=== PATIENT | male | born 1950 | race Caucasian/White ===

== ENCOUNTER → 2016-08-05 | Outpatient (CLI) | payer MEDICARE, BC ==
--- NOTE | 2016-08-05 16:59 | CT ---
EXAMINATION: CT paranasal sinuses HISTORY: Chronic sinusitis COMPARISON: None TECHNIQUE: Axial CT images obtained through the paranasal sinuses without contrast. Coronal and sagi ttal reconstructions obtained. FINDINGS: There is mucosal thickening within the maxillary sinuses bilaterally. There is obstruction of the right ostiomeatal complex and partial obstruction of the left ostiomeatal complex secondary to the mucosal thickening. Mild scattered mucosal thickening is noted within the ethmoid air cells, sphenoid sinuses, and frontal sinuses. The frontoethmoidal recesses are patent. There is partial obs truction of the sphenoethmoidal recesses secondary to mucosal thickening. No bony destruction or air -fluid levels. The mastoid air cells and middle ears are clear. The orbits and globes are symmetric. Bone mineralization is normal. The temporomandibular joints are symmetric. No fracture or acute oss eous abnormality. IMPRESSION: 1. Mild paranasal sinus disease with details above.
== END ==
LOC: MW.DI 12:54
PROVIDERS: ATTEND Otolaryngology Otolaryngology/Facial Plastic Surgery
DX: J32.9 Chronic sinusitis, unspecified (principal)
CPT/HCPCS: 70486; 70486-26

== ENCOUNTER → 2016-08-13 | Outpatient (CLI) | payer MEDICARE, BC | LOC: MW.CHFP 15:32 | PROVIDERS: ATTEND Physician Assistant | DX: J01.00 Acute maxillary sinusitis, unspecified (principal); J30.9 Allergic rhinitis, unspecified | CPT/HCPCS: 87070; 87077; 87186; 87205; G0463 ==

== ENCOUNTER 2021-11-11 11:57 | Emergency (ER) | payer MEDICARE, BC ==
[2021-11-11] MEDS ORDERED: Heparin Sodium 5,000 Units/ML Vial IVPUSH STA (12:28)
[2021-11-11] MEDS ORDERED: Tenecteplase 50 MG Kit IV ONE (12:30)
[2021-11-11] MEDS ORDERED: Heparin Sodium/0.45% NaCl 500 ML IV SCH (12:30)
[2021-11-11] MEDS ORDERED: Clopidogrel 75 MG Tab PO ONE (12:30)
[2021-11-11 13:07] LABS: BLOOD UREA NITROGEN,BUN 15 mg/dL (7.0-18.0); CARBON DIOXIDE,CO2 32.1 mmol/L (21.0-32.0); CHLORIDE,CL 103 mmol/L (98-107); GLUCOSE RANDOM 158 mg/dL (74-106); POTASSIUM,K 3.7 mmol/L (3.5-5.1); SODIUM,NA 142 mmol/L (136-148)
[2021-11-11 13:12] LABS: ESTIMATED GFR 71 mL/min (>60)
== END 2021-11-11 13:21 ==
LOC: MW.ED 11:57
DX: I21.3 ST elevation (STEMI) myocardial infarction of unspecified site (principal); E11.9 Type 2 diabetes mellitus without complications; I10 Essential (primary) hypertension; J44.9 Chronic obstructive pulmonary disease, unspecified; Z20.822 Contact with and (suspected) exposure to COVID-19
CPT/HCPCS: 36415; 71045; 80048; 83735; 84484; 85025; 85610; 85730; 92977; 93005; 96365; 96376; 99291; A9270; J1644; J3101; U0002; 93010

== ENCOUNTER 2024-07-03 07:24 | Day surgery (SDC) | payer MEDICARE ==
[~2024-07-03 07:24] MED LIST: Sodium Chloride 0.9% 10 ML Syringe FLUSH PRN; Sodium Chloride 0.9% 2.5 ML Syringe FLUSH PRN; Sodium Chloride 0.9% 20 ML SDV IV PRN
[2024-07-03] MEDS: Lactated Ringers 1,000 ML IV SCH (07:50)
[2024-07-03] MEDS ORDERED: Lidocaine 2% 5 ML SDV ONE (08:31)
[2024-07-03] MEDS ORDERED: Propofol 200 MG/20 ML SDV ONE ×2 (08:31→09:42)
== END 2024-07-03 10:46 | disposition home or self-care (01) ==
LOC: MW.SDS 07:24
PROVIDERS: ATTEND Surgery
DX: Z12.11 Encounter for screening for malignant neoplasm of colon (principal); D12.2 Benign neoplasm of ascending colon; D12.3 Benign neoplasm of transverse colon; D12.5 Benign neoplasm of sigmoid colon; K62.1 Rectal polyp; K57.30 Diverticulosis of large intestine without perforation or abscess without bleeding; K42.9 Umbilical hernia without obstruction or gangrene; J45.909 Unspecified asthma, uncomplicated; I25.10 Atherosclerotic heart disease of native coronary artery without angina pectoris; K21.9 Gastro-esophageal reflux disease without esophagitis; I10 Essential (primary) hypertension; E78.00 Pure hypercholesterolemia, unspecified; G47.33 Obstructive sleep apnea (adult) (pediatric); Z79.82 Long term (current) use of aspirin; Z79.84 Long term (current) use of oral hypoglycemic drugs; Z79.899 Other long term (current) drug therapy; Z80.0 Family history of malignant neoplasm of digestive organs
CPT/HCPCS: 45380; 45385; 88305; J2704; J7120; 00811; 99100; J3490

== ENCOUNTER 2024-12-13 06:33 | Day surgery (SDC) | payer MEDICARE ==
[~2024-12-13 06:33] MED LIST changes: -Sodium Chloride 0.9% 20 ML SDV IV PRN; +ceFAZolin 2 GM in Water For Injection, Sterile 20 ML IVPUSH ONE
[2024-12-13] MEDS ORDERED: fentaNYL 250 MCG/5 ML SDV ONE (07:28)
[2024-12-13] MEDS ORDERED: Propofol 200 MG/20 ML SDV ONE (07:28)
[2024-12-13] MEDS: Lactated Ringers 1,000 ML IV SCH (07:30)
[2024-12-13] MEDS ORDERED: Ropivacaine 0.5% 5 MG/ML 30 ML SDV ONE ×2 (07:32→07:53)
[2024-12-13] MEDS ORDERED: Morphine 10 MG/ML SDV ONE (07:33)
[2024-12-13] MEDS ORDERED: Lidocaine 2% 11 ML Jelly Filled Syringe ONE (07:38)
[2024-12-13] MEDS ORDERED: Albuterol 0.083% 2.5 MG/3 ML Neb Soln NEB PRN (07:49)
[2024-12-13] MEDS ORDERED: Naloxone 0.4 MG/ML SDV IVPUSH PRN (07:49)
[2024-12-13] MEDS ORDERED: Ondansetron 4 MG/2 ML SDV IVPUSH PRN (07:49)
[2024-12-13] MEDS ORDERED: fentaNYL 50 MCG/ML SDV IVPUSH PRN (07:49)
[2024-12-13] MEDS ORDERED: Ketamine HCL/NACL, ISO-OSM 50 MG/5 ML Syringe ONE (07:59)
[2024-12-13] MEDS ORDERED: Ondansetron 4 MG/2 ML SDV ONE (08:26)
[2024-12-13] MEDS ORDERED: dexmedeTOMIDine HCl 200 MCG/2 ML SDV ONE (09:06)
== END 2024-12-13 10:55 | disposition home or self-care (01) ==
LOC: MW.SDS 06:33
PROVIDERS: ATTEND Surgery
DX: K42.9 Umbilical hernia without obstruction or gangrene (principal); I10 Essential (primary) hypertension; I25.10 Atherosclerotic heart disease of native coronary artery without angina pectoris; E78.00 Pure hypercholesterolemia, unspecified; E66.812 Obesity, class 2; K21.9 Gastro-esophageal reflux disease without esophagitis; G47.33 Obstructive sleep apnea (adult) (pediatric); J45.909 Unspecified asthma, uncomplicated; Z91.09 Other allergy status, other than to drugs and biological substances; Z79.82 Long term (current) use of aspirin; Z79.899 Other long term (current) drug therapy
CPT/HCPCS: 49591; 82947; A9270; J0665; J1308; J2405; J2704; J2795; J3010; J7120; 00752; 64488; J2272; J3490